=== PATIENT | female | born 1990 | race Caucasian/White ===

== ENCOUNTER 2023-09-02 06:19 | Outpatient (OUT) | payer OTHER, SELFPAY ==
--- NOTE | 2023-09-02 06:34 | XR_ITS ---
The [address] [address] Patient Name: AYO CALLAWAY MRN: [id number] date: 1990 Sex: F Assigned Patient Location: LAB Current Patient Location: LAB Accession/Order Number: [id number] Exam Date: 09/02/2023 06:35 Report Date: 09/02/2023 08:02 At the request of: TIFFANIE FERRARO Procedure: XR lumbar spine 2-3V EXAMINATION: XR lumbar spine 2-3V HISTORY: Lumbar Radiculopathy ; chronic low back pain COMPARISON: No relevant comparison available. FINDINGS: BONES: No significant spondylosis, scoliosis, fracture, or visible bony lesion. DISC SPACES: Mild-moderate narrowing L5-S1. PARASPINOUS: Negative. No paraspinous abnormality is seen. OTHER: Negative. XR/XR lumbar spine 2-3V IMPRESSION: 1. L5-S1 mild/moderate disc space narrowing; degenerative disc bulging versus developmental. Consider MRI for further evaluation if symptoms persist. Electronically authenticated by: ALISTAIR ESCALANTE Date: 09/02/2023 08:02
[2023-09-02 07:33] LABS: Basophils Absolute Auto 0.1 10^3/uL (0.0-0.1); Basophils Percent Auto 0.7 % (0.2-2.0); Eosinophils Absolute Auto 0.3 10^3/uL (0.0-0.7); Eosinophils Percent Auto 2.6 % (0.9-7.0); Immature Granulocytes Abs Auto 0.06 10^3/uL (0.00-0.03); Immature Granulocytes Pct Auto 0.5 % (0.0-0.5); Lymphocytes Absolute Auto 3.7 10^3/uL (1.2-3.8); Lymphocytes Percent Auto 30.2 % (20.5-60.0); Mean Corpuscular HGB Conc 31.7 g/dL (29.9-35.2); Mean Corpuscular Hemoglobin 28.3 pg (26.7-34.0); Mean Corpuscular Volume 89.3 fL (81.0-99.0); Mean Platelet Volume 9.2 fL (9.5-13.5); Monocytes Absolute Auto 0.4 10^3/uL (0.3-0.8); Monocytes Percent Auto 3.6 % (1.7-12.0); Neutrophils Absolute Auto 7.6 10^3/uL (1.4-6.5); Neutrophils Percent Auto 62.4 % (43.0-75.0); Platelet Count 351 10^3/uL (150-450); Red Blood Count 4.59 10^6/uL (4.20-5.40); Red Cell Distribution Width 13.1 % (11.0-15.0); White Blood Count 12.1 10^3/uL (4.0-11.0)
[2023-09-02 07:51] LABS: Alanine Aminotransferase 48 U/L (14-59); Albumin Globulin Ratio 0.9; Albumin Level 3.5 g/dL (3.4-5.0); Alkaline Phosphatase 67 U/L (46-116); Aspartate Amino Transferase 15 U/L (15-37); BUN Creatinine Ratio 16.5; Bilirubin Total 0.5 mg/dL (0.2-1.0); Chloride 102 mmol/L (98-107); Chol HDL Ratio 4.5; Cholesterol 184 mg/dL (<=200); Estimated GFR (African America >60 (>=60); Estimated GFR (Non-African Ame >60 (>=60); Globulin 3.8 g/dL; Glucose 98 mg/dL (74-106); HDL Cholesterol 41 mg/dL (40-60); Sodium 140 mmol/L (136-145); Total Protein 7.3 g/dL (6.4-8.2); Triglycerides 225 mg/dL (<=150)
[2023-09-02 09:27] LABS: Estimated Average Glucose 114 mg/dL; Glycohemoglobin A1C 5.6 % (4.5-6.2)
== END 2023-09-02 06:20 | disposition home or self-care (01) ==
LOC: LAB 06:24
PROVIDERS: PCP Family Medicine; Visit Provider Family Medicine
DX: Z00.00 Encounter for general adult medical examination without abnormal findings (principal); M54.16 Radiculopathy, lumbar region
CPT/HCPCS: 36415; 72100; 80053; 80061; 83036; 85025